=== PATIENT | male | born 2000 | race Caucasian/White ===

== ENCOUNTER 2022-06-20 14:05 | Emergency (ER) | payer OTHER ==
--- NOTE | 2022-06-20 15:26 | RAD REPORT ---
EXAM DESCRIPTION: RAD - Elbow Left 3 View - 06/20/2022 3:08 pm CLINICAL HISTORY: PAIN COMPARISON: No comparisons FINDINGS/IMPRESSION: No acute fracture. No malalignment. No significant focal degenerative changes.
--- NOTE | 2022-06-20 15:38 | ER ---
Nurse's Notes [facility] Name: Esdras Mariee Age: 22 yrs Sex: Male : 2000 Arrival Date: 06/20/2022 Time: 14:08 Bed 11 Private MD: Diagnosis: Pain in left elbow Presentation: 06/20 14:27 Chief complaint: Patient states: day before yesterday was lifting and my elbow locked jh5 up, and as i straighted it, the pain started. Coronavirus screen: Vaccine status: Patient reports being unvaccinated. Client denies travel out of the [place] in the last 14 days. Ebola Screen: Patient negative for fever greater than or equal to 101.5 degrees Fahrenheit, and additional compatible Ebola Virus Disease symptoms Patient denies exposure to infectious person. Patient denies travel to an Ebola-affected area in the 21 days before illness onset. Initial Sepsis Screen: Does the patient meet any 2 criteria? No. Patient's initial sepsis screen is negative. Does the patient have a suspected source of infection? No. Patient's initial sepsis screen is negative. Risk Assessment: Do you want to hurt yourself or someone else? Patient reports no desire to harm self or others. 14:27 Method Of Arrival: Ambulatory [facility] 14:27 Acuity: CECIL 4 jh5 Triage Assessment: 14:29 General: Appears in no apparent distress. uncomfortable, well groomed, well developed, [facility] Behavior is calm, cooperative, appropriate for age. Historical: - Allergies: 14:29 No Known Allergies; [facility] - Home Meds: 14:29 None [Active]; [facility] - PMHx: 14:29 None; [facility] - PSHx: 14:29 None; [facility] - Immunization history:: Adult Immunizations up to date. - Social history:: Smoking status: Patient reports the use of cigarette tobacco products, denies chronic smoking, but will smoke occasionally. Screenin:41 Abuse screen: Denies threats or abuse. Denies injuries from another. Nutritional ld1 screening: No deficits noted. Tuberculosis screening: No symptoms or risk factors identified. Fall Risk None identified. Assessment: 14:41 General: Appears in no apparent distress. comfortable, Behavior is calm, cooperative, ld1 appropriate for age. Pain: Complains of pain in right arm and left arm Pain does not radiate. Pain at worst was 6 out of 10 on a pain scale. Neuro: Level of Consciousness is awake, alert, obeys commands, Oriented to person, place, time, situation. Cardiovascular: Capillary refill < 3 seconds Patient's skin is warm and dry. Respiratory: Airway is patent Respiratory effort is even, unlabored. GI: Abdomen is flat, non-distended. : No signs and/or symptoms were reported regarding the genitourinary system. EENT: No signs and/or symptoms were reported regarding the EENT system. Derm: No signs and/or symptoms reported regarding the dermatologic system. Musculoskeletal: No signs and/or symptoms reported regarding the musculoskeletal system. Vital Signs: 14:27 BP 118 / 76; Pulse 84; Resp 18; Temp 98.3; Pulse Ox 100% ; Weight 95.25 kg; Height 6 5 ft. 1 in. (185.42 cm); Pain 8/10; 14:41 BP 116 / 79; Pulse 81; Resp 18; Pulse Ox 100% ; Pain 6/10; ld1 14:27 Body Mass Index 27.71 (95.25 kg, 185.42 cm) [facility] ED Course: 14:08 Patient arrived in ED. rg4 14:24 Jessica Ramesh PA is PHCP. en 14:24 Satnam Greenberg MD is Attending Physician. en 14:29 Triage completed. 5 14:29 Arm band placed on right wrist. [facility] 14:41 Jeanette Barajas, RN is Primary Nurse. ld1 14:41 Patient has correct armband on for positive identification. Placed in gown. Bed in low ld1 position. Call light in reach. Side rails up X2. Pulse ox on. NIBP on. Door closed. Noise minimized. 14:41 No provider procedures requiring assistance completed. Patient did not have IV access ld1 during this emergency room visit. 15:10 Elbow Left 3 View XRAY In Process Unspecified. EDMS 15:37 Valdo Whelan MD is Referral Physician. en Administered Medications: No medications were administered Medication: 14:41 VIS not applicable for this client. ld1 Outcome: 15:37 Discharge ordered by . en 15:55 Discharged to home ambulatory. ld1 15:55 Condition: stable 15:55 Discharge instructions given to patient, Instructed on discharge instructions, follow up and referral plans. Demonstrated understanding of instructions, follow-up care. 15:55 Patient left the ED. ld1 Signatures: Dispatcher [employer] Lori Levine rg4 Jeanette Barajas RN RN ld1 Silvana Stafford RN RN jh5 Jessica Ramesh PA PA en
--- NOTE | 2022-06-20 15:39 | EDPHYS ---
Physician Documentation [facility] Name: Esdras Mariee Age: 22 yrs Sex: Male : 2000 Arrival Date: 06/20/2022 Time: 14:08 Bed 11 Private MD: ED Physician Satnam Greenberg HPI: 06/20 14:55 This 22 yrs old Male presents to ER via Ambulatory with complaints of Elbow Pain. en 14:55 22-year-old tpupa-cxox-valesqac male presents to ED with left elbow pain by 2 days. en Patient reports sudden onset of sharp/burning elbow pain 2 days ago after lifting. He had pain extending his arm initially but now has full range of motion without swelling or deformity. No numbness or tingling. He did not feel a pop.. Historical: - Allergies: 14:29 No Known Allergies; [facility] - Home Meds: 14:29 None [Active]; 5 - PMHx: 14:29 None; [facility] - PSHx: 14:29 None; [facility] - Immunization history:: Adult Immunizations up to date. - Social history:: Smoking status: Patient reports the use of cigarette tobacco products, denies chronic smoking, but will smoke occasionally. ROS: 14:55 Constitutional: Negative for fever, chills, and weight loss. en 14:55 MS/extremity: Positive for Left elbow pain, Negative for deformity, swelling. 14:55 Neuro: Negative for numbness, tingling. 14:55 All other systems are negative. Exam: 14:55 Constitutional: This is a well developed, well nourished patient who is awake, alert, en and in no acute distress. 14:55 Constitutional: The patient appears in no acute distress, alert, awake. 14:55 Eyes: Conjunctiva: exudate, injected. 14:55 ENT: Posterior pharynx: Airway: patent. 14:55 Musculoskeletal/extremity: FROM left elbow without swelling or deformity. Mild TTP along medial tricep insertion without palpable defect. No TTP along ulnar tunnel. 2+ radial pulse. 14:55 Musculoskeletal/extremity: ulnar and medial collateral ligaments stable. 14:55 Skin: no rash present. 14:55 Neuro: normal m/u/r nerve motor and sensory function. Vital Signs: 14:27 BP 118 / 76; Pulse 84; Resp 18; Temp 98.3; Pulse Ox 100% ; Weight 95.25 kg; Height 6 5 ft. 1 in. (185.42 cm); Pain 8/10; 14:41 BP 116 / 79; Pulse 81; Resp 18; Pulse Ox 100% ; Pain 6/10; ld1 14:27 Body Mass Index 27.71 (95.25 kg, 185.42 cm) [facility] MDM: 14:24 Patient medically screened. en 14:55 Differential diagnosis: tricep strain vs tear, intra-articular FB, arthritis. Data en reviewed: vital signs, nurses notes, radiologic studies, plain films. 15:36 ED course: Reviewed imaging with patient. Discussed possible triceps strain versus en small tear. Will DC home with current sling that he already has. Motrin for pain and Ortho referral as needed for additional imaging.. 06/20 14:47 Order name: Elbow Left 3 View XRAY; Complete Time: 15:36 en Administered Medications: No medications were administered Disposition: 17:16 Co-signature as Attending Physician, Satnam Greenberg MD. rn Disposition Summary: 06/20/22 15:37 Discharge Ordered Location: Home en Problem: new en Symptoms: are unchanged en Condition: Stable en Diagnosis - Pain in left elbow en Followup: en - With: Valdo Whelan MD - When: 1 week - Reason: Re-evaluation by your physician Discharge Instructions: - Discharge Summary Sheet en - Musculoskeletal Pain en Forms: - Medication Reconciliation Form en - Thank You Letter en - Work release form [email or web address] - Antibiotic Education en - Prescription Opioid Use en Prescriptions: - Ibuprofen 600 mg Oral Tablet - take 1 tablet by ORAL route every 6 hours As needed take with food; 30 tablet; en Refills: 0, Product Selection Permitted Signatures: Dispatcher [employer] EDSatnam Hairston MD MD rn Rees, Jessica, RN RN 5 Jessica Ramesh PA PA en
[2022-06-20 15:59] VITALS: TEMP 98.3; O2SAT 100
[2022-06-20 16:01] VITALS: BP 116/79
== END 2022-06-20 15:55 | disposition home or self-care (01) ==
LOC: ER 14:05
DX: M25.522 Pain in left elbow (principal); F17.210 Nicotine dependence, cigarettes, uncomplicated
CPT/HCPCS: 99283

== ENCOUNTER 2023-01-27 15:17 | Emergency (ER) | payer OTHER ==
[2023-01-27 15:48] LABS: Absolute Lymphocytes (CBC) 2.4 K/uL (0.7-4.9); Hematocrit 48.8 % (39.6-49.0); Lymphocytes % 23.1 % (15.3-44.8); MPV 8.4 fL (7.6-11.3); RBC Red Blood Cell Count 5.67 M/uL (4.33-5.43)
[2023-01-27] MEDS ORDERED: ONDANSETRON 4 MG/2 ML VIAL ONE (15:53)
[2023-01-27 16:05] LABS: Albumin 4.9 g/dL (3.4-5.0); Bilirubin Total 2.5 mg/dL (0.2-1.0); Potassium 3.6 mEq/L (3.5-5.1); Protein, Total 8.8 g/dL (6.4-8.2)
--- NOTE | 2023-01-27 17:40 | ER ---
Nurse's Notes [facility] Name: Esdras Mariee Age: 22 yrs Sex: Male : 2000 Arrival Date: 01/27/2023 Time: 15:17 Bed 13 Private MD: Diagnosis: Nausea with vomiting, unspecified Presentation: 01/27 15:22 Chief complaint: Patient states: abd cramping, vomiting, slight diarrhea that began aa5 yesterday. 15:22 Coronavirus screen: vomiting. Ebola Screen: Patient denies travel to an Ebola-affected [facility] area in the 21 days before illness onset. Initial Sepsis Screen: Does the patient meet any 2 criteria? No. Patient's initial sepsis screen is negative. Does the patient have a suspected source of infection? No. Patient's initial sepsis screen is negative. Risk Assessment: Do you want to hurt yourself or someone else? Patient reports no desire to harm self or others. Onset of symptoms was January 2023. 15:22 Method Of Arrival: Ambulatory aa5 15:22 Acuity: CECIL 3 aa5 Triage Assessment: 15:30 General: Appears in no apparent distress. Behavior is calm, cooperative, appropriate bp for age. Pain: Complains of pain in abdomen. EENT: No deficits noted. Neuro: No deficits noted. Cardiovascular: No deficits noted. Respiratory: No deficits noted. GI: Reports lower abdominal pain, nausea. : No signs and/or symptoms were reported regarding the genitourinary system. Derm: No deficits noted. Musculoskeletal: No deficits noted. Historical: - Allergies: 15:30 No Known Allergies; aa5 - Home Meds: 15:30 None [Active]; aa5 - PMHx: 15:30 None; aa5 - PSHx: 15:30 collar bone; aa5 - Immunization history:: Adult Immunizations unknown. - Social history:: Smoking status: Patient reports the use of cigarette tobacco products, smokes one-half pack cigarettes per day. Screenin:30 [facility] ED Fall Risk Assessment (Adult) History of falling in the last 3 months, bp including since admission No falls in past 3 months (0 pts). Abuse screen: Denies threats or abuse. Denies injuries from another. Nutritional screening: No deficits noted. Tuberculosis screening: No symptoms or risk factors identified. Assessment: 15:30 General: SEE TRIAGE NOTE. bp 16:24 Reassessment: Patient appears in no apparent distress at this time. Patient is alert, bp oriented x 3, equal unlabored respirations, skin warm/dry/pink. Vital Signs: 15:22 BP 148 / 99; Pulse 64; Resp 16 S; Temp 98.4(O); Pulse Ox 97% on R/A; Weight 87.09 kg aa5 (R); Height 6 ft. 1 in. (R); 16:24 BP 146 / 73; Pulse 58; Resp 16; Pulse Ox 97% ; bp 18:01 BP 136 / 71; Pulse 62; Resp 16; Pulse Ox 99% ; bp 15:22 Body Mass Index 25.33 (87.09 kg, 185.42 cm) aa5 ED Course: 15:21 Patient arrived in ED. am2 15:21 Melissa Schultz FNP-C [facility] kb 15:21 Luis Blancas MD is Attending Physician. kb 15:22 Arm band placed on. aa5 15:24 Kenny Cochran, LARISA is Primary Nurse. bp 15:30 Patient has correct armband on for positive identification. Bed in low position. Call bp light in reach. Side rails up X2. 15:31 Triage completed. aa5 15:45 Inserted saline lock: 20 gauge in right antecubital area, using aseptic technique. bp Blood collected. 18:02 No provider procedures requiring assistance completed. IV discontinued, intact, bp bleeding controlled, No redness/swelling at site. Pressure dressing applied. Administered Medications: 15:45 Drug: Ondansetron IVP 4 mg Route: IVP; Site: right antecubital; bp 17:09 Follow up: Response: No adverse reaction bp Medication: 15:30 VIS not applicable for this client. bp Outcome: 17:39 Discharge ordered by . kb 18:02 Discharged to home ambulatory. bp 18:02 Condition: stable 18:02 Discharge instructions given to patient, Instructed on discharge instructions, follow up and referral plans. medication usage, Demonstrated understanding of instructions, follow-up care, medications, Prescriptions given X 1. 18:03 Patient left the ED. bp Signatures: Melissa Schultz FNP-C FNP-Ckb Calderon, Audri RN RN aa5 Luciana Garnica am2 Kenny Cochran, RN RN bp
--- NOTE | 2023-01-27 17:40 | EDPHYS ---
Physician Documentation [facility] Name: Esdras Mariee Age: 22 yrs Sex: Male : 2000 Arrival Date: 01/27/2023 Time: 15:17 Bed 13 Private MD: ED Physician Luis Blancas HPI: 01/27 20:39 This 22 yrs old Male presents to ER via Ambulatory with complaints of Abdominal Pain, kb Nausea/Vomiting. 20:39 The patient presents with abdominal pain that is diffuse. Onset: The symptoms/episode kb began/occurred today. The symptoms do not radiate. Associated signs and symptoms: Pertinent positives: nausea, vomiting, and diarrhea, Pertinent negatives: fever. The symptoms are described as constant. Modifying factors: The symptoms are alleviated by nothing, the symptoms are aggravated by nothing. Severity of pain: At its worst the pain was mild in the emergency department the pain is unchanged. The patient has not experienced similar symptoms in the past. The patient has not recently seen a physician. Pt reports n/v, slight diarrhea and upper abd soreness that started today. states he came in because his boss made him.. Historical: - Allergies: 15:30 No Known Allergies; aa5 - Home Meds: 15:30 None [Active]; aa5 - PMHx: 15:30 None; aa5 - PSHx: 15:30 collar bone; aa5 - Immunization history:: Adult Immunizations unknown. - Social history:: Smoking status: Patient reports the use of cigarette tobacco products, smokes one-half pack cigarettes per day. ROS: 20:37 Constitutional: Negative for fever, chills, and weight loss. kb 20:37 Abdomen/GI: Positive for abdominal pain, nausea, vomiting, and diarrhea. 20:37 All other systems are negative. Exam: 20:37 Constitutional: This is a well developed, well nourished patient who is awake, alert, kb and in no acute distress. ENT: Moist Mucous membranes Cardiovascular: Regular rate and rhythm with a normal S1 and S2. No gallops, murmurs, or rubs. No pulse deficits. Respiratory: Respirations even and unlabored. No increased work of breathing. Talking in full sentences Abdomen/GI: Soft, non-tender. No distention Skin: Warm, dry with normal turgor. Normal color. MS/ Extremity: Pulses equal, no cyanosis. Neurovascular intact. Full, normal range of motion. Neuro: Awake and alert, GCS 15, oriented to person, place, time, and situation. Moves all extremities. Normal gait. Vital Signs: 15:22 BP 148 / 99; Pulse 64; Resp 16 S; Temp 98.4(O); Pulse Ox 97% on R/A; Weight 87.09 kg aa5 (R); Height 6 ft. 1 in. (R); 16:24 BP 146 / 73; Pulse 58; Resp 16; Pulse Ox 97% ; bp 18:01 BP 136 / 71; Pulse 62; Resp 16; Pulse Ox 99% ; bp 15:22 Body Mass Index 25.33 (87.09 kg, 185.42 cm) aa5 MDM: 15:21 Patient medically screened. kb 20:38 Differential diagnosis: gastritis, non-specific abd pain, viral gastroenteritis. Data kb reviewed: vital signs, nurses notes. Test considered but Not performed: CT: CT abd considered, but pt has no abd tenderness, nontoxic in appearance, afebrile, tolerating po intake. Counseling: I had a detailed discussion with the patient and/or guardian regarding: the historical points, exam findings, and any diagnostic results supporting the discharge/admit diagnosis, lab results, the need for outpatient follow up, a family practitioner, a radio station engineer, to return to the emergency department if symptoms worsen or persist or if there are any questions or concerns that arise at home. 01/27 15:30 Order name: CBC with Diff; Complete Time: 15:51 kb 01/27 15:30 Order name: CMP; Complete Time: 16:06 kb 01/27 15:30 Order name: Lipase; Complete Time: 16:06 kb 01/27 15:30 Order name: IV Saline Lock; Complete Time: 15:54 kb 01/27 15:30 Order name: Labs collected and sent; Complete Time: 15:54 kb 01/27 16:40 Order name: PO challenge; Complete Time: 17:09 kb Administered Medications: 15:45 Drug: Ondansetron IVP 4 mg Route: IVP; Site: right antecubital; bp 17:09 Follow up: Response: No adverse reaction bp Disposition Summary: 01/27/23 17:39 Discharge Ordered Location: Home kb Condition: Stable kb Diagnosis - Nausea with vomiting, unspecified kb Followup: kb - With: Emergency Department - When: As needed - Reason: Worsening of condition Followup: kb - With: Private Physician - When: 2 - 3 days - Reason: Recheck today's complaints, Continuance of care, Re-evaluation by your physician Discharge Instructions: - Discharge Summary Sheet kb - Nausea and Vomiting, Adult, [id number] kb Forms: - Work release form kb - Medication Reconciliation Form kb - Thank You Letter kb - Antibiotic Education kb - Prescription Opioid Use kb Prescriptions: - ondansetron 4 mg Oral Tablet,disintegrating - take 1 tablet by ORAL route every 6 hours As needed; 10 tablet; Refills: 0, kb Product Selection Permitted Signatures: Dispatcher [employer] EDMS Melissa Schultz, GEOTHERMAL SYSTEM INSTALLER-C GEOTHERMAL SYSTEM INSTALLER-Kenyatta Johnson, RN RN aa5 Kenny Cochran RN RN bp
[2023-01-27 18:27] VITALS: TEMP 98.4
[2023-01-27 18:30] VITALS: BP 136/71; O2SAT 99
== END 2023-01-27 18:03 | disposition home or self-care (01) ==
LOC: ER 15:17
DX: R11.2 Nausea with vomiting, unspecified (principal); R10.10 Upper abdominal pain, unspecified; F17.210 Nicotine dependence, cigarettes, uncomplicated
CPT/HCPCS: 85025; 36415; 83690; 80053; 96374; 99284; J2405

== ENCOUNTER 2023-02-26 18:52 | Emergency (ER) | payer OTHER ==
--- NOTE | 2023-02-26 20:12 | EDPHYS ---
Physician Documentation [facility] Name: Esdras Mariee Age: 22 yrs Sex: Male : 2000 Arrival Date: 02/26/2023 Time: 18:52 Bed IW1 Private MD: ED Physician Satnam Greenberg HPI: 02/26 19:15 This 22 yrs old Male presents to ER via Ambulatory with complaints of COVID SYMPTOMS. rn 19:15 Pt reports sinus pressure and drainage, headache, subjective fever, chills, and nausea rn for 2 days, took home COVID test, was positive, but his work wont accept a home test. Here for confirmation. No sob or chest pain.. Onset: The symptoms/episode began/occurred 2 day(s) ago. Severity of symptoms: At their worst the symptoms were mild in the emergency department the symptoms are unchanged. The patient has not experienced similar symptoms in the past. The patient has not recently seen a physician. Historical: - Allergies: 19:14 No Known Allergies; ph - PSHx: 19:14 collar bone; ph - Immunization history:: Adult Immunizations unknown. - Social history:: Smoking status: Reported history of juuling and/or vaping. - Family history:: not pertinent. - Hospitalizations: : No recent hospitalization is reported. ROS: 19:15 Constitutional: + fever and chills Eyes: Negative for injury, pain, redness, and staffing rn, Cardiovascular: Negative for chest pain, palpitations, and edema, Respiratory: + cough, negative for sob Abdomen/GI: Negative for abdominal pain, vomiting, diarrhea, and constipation, MS/Extremity: Negative for injury and deformity, Skin: Negative for injury, rash, and discoloration, Neuro: + headache Exam: 19:15 Constitutional: This is a well developed, well nourished patient who is awake, alert, rn and in no acute distress. Respiratory: No increased work of breathing, no retractions or nasal flaring. Neuro: Awake and alert, GCS 15 Vital Signs: 19:11 BP 131 / 82; Pulse 113; Resp 18; Temp 98.4; Pulse Ox 100% ; Weight 86.64 kg; Height 6 ph ft. 1 in. ; 19:11 Body Mass Index 25.20 (86.64 kg, 185.42 cm) ph MDM: 18:58 Patient medically screened. rn 20:10 Differential Diagnosis COVID. Data reviewed: vital signs, nurses notes, lab test rn result(s), and as a result, I will discharge patient. Counseling: I had a detailed discussion with the patient and/or guardian regarding: the historical points, exam findings, and any diagnostic results supporting the discharge/admit diagnosis, lab results, the need for outpatient follow up, to return to the emergency department if symptoms worsen or persist or if there are any questions or concerns that arise at home. Special discussion: I discussed with the patient/guardian in detail that at this point there is no indication for admission to the hospital. It is understood, however, that if the symptoms persist or worsen the patient needs to return immediately for re-evaluation. 02/26 19:07 Order name: SARS-COV-2 RT PCR; Complete Time: 20:02 ph Administered Medications: No medications were administered Disposition Summary: 02/26/23 20:12 Discharge Ordered Location: Home rn Problem: new rn Symptoms: have improved rn Condition: Stable rn Diagnosis - SARS-associated coronavirus as the cause of diseases classified elsewhere rn Followup: rn - With: Private Physician - When: As needed - Reason: Recheck today's complaints, Re-evaluation by your physician Discharge Instructions: - Discharge Summary Sheet rn - COVID-19 rn Forms: - Medication Reconciliation Form rn - Thank You Letter rn - Antibiotic privacy attorney - Prescription Opioid Use rn - Patient Portal Instructions rn - Work release form [email or web address] Signatures: Dispatcher [employer] Satnam Hawkins MD MD rn Hall, Patricia, RN RN
--- NOTE | 2023-02-26 20:12 | ER ---
Nurse's Notes [facility] Name: Esdras Mariee Age: 22 yrs Sex: Male : 2000 Arrival Date: 02/26/2023 Time: 18:52 Bed IW1 Private MD: Diagnosis: SARS-associated coronavirus as the cause of diseases classified elsewhere Presentation: 02/26 19:11 Chief complaint: Patient states: Nasal congestion, fatigue, body aches, headache. ph Coronavirus screen: Vaccine status: Patient reports receiving the 2nd dose of the covid vaccine. Ebola Screen: No symptoms or risks identified at this time. Initial Sepsis Screen: Does the patient meet any 2 criteria? No. Patient's initial sepsis screen is negative. Does the patient have a suspected source of infection? No. Patient's initial sepsis screen is negative. Risk Assessment: Do you want to hurt yourself or someone else? Patient reports no desire to harm self or others. Onset of symptoms was February 26, 2023. 19:11 Method Of Arrival: Ambulatory 19:11 Acuity: CECIL 4 ph Triage Assessment: 19:14 General: Appears in no apparent distress. comfortable, well groomed, Behavior is calm, ph cooperative, appropriate for age, Reports chills for fever for. Pain: Complains of pain in body aches. EENT: Reports nasal congestion. Neuro: Level of Consciousness is awake, alert, obeys commands, Oriented to person, place, time, situation, Reports headache. Respiratory: Airway is patent Respiratory effort is even, unlabored, Denies shortness of breath. GI: Reports nausea. Derm: Skin is pink, warm \T\ dry. Historical: - Allergies: 19:14 No Known Allergies; ph - PSHx: 19:14 collar bone; ph - Immunization history:: Adult Immunizations unknown. - Social history:: Smoking status: Reported history of juuling and/or vaping. - Family history:: not pertinent. - Hospitalizations: : No recent hospitalization is reported. Screenin:16 [facility] ED Fall Risk Assessment (Adult) History of falling in the last 3 months, ph including since admission No falls in past 3 months (0 pts) Confusion or Disorientation No (0 pts) Intoxicated or Sedated No (0 pts) Impaired Gait No (0 pts) Mobility Assist Device Used No (0 pt) Altered Elimination No (0 pt) Score/Fall Risk Level 0 - 2 = Low Risk Oriented to surroundings, Maintained a safe environment. Abuse screen: Denies threats or abuse. Denies injuries from another. Nutritional screening: No deficits noted. Tuberculosis screening: No symptoms or risk factors identified. Assessment: 19:16 General: SEE TRIAGE ASSESSMENT. ph Vital Signs: 19:11 BP 131 / 82; Pulse 113; Resp 18; Temp 98.4; Pulse Ox 100% ; Weight 86.64 kg; Height 6 ph ft. 1 in. ; 19:11 Body Mass Index 25.20 (86.64 kg, 185.42 cm) ph ED Course: 18:56 Patient arrived in ED. kj1 18:57 Satnam Greenberg MD is Attending Physician. rn 19:13 Triage completed. ph 19:15 Arm band placed on Patient placed in waiting room, Patient's private physician ph notified. Labs ordered per protocol. 19:16 Patient has correct armband on for positive identification. Call light in reach. ph 19:16 No provider procedures requiring assistance completed. Patient did not have IV access ph during this emergency room visit. 19:17 SARS-COV-2 RT PCR Sent. ph 19:54 Zoie Gagnon, RN is Primary Nurse. kd3 20:22 Provided Education on: . kd3 Administered Medications: No medications were administered Medication: 19:16 VIS not applicable for this client. ph Outcome: 20:12 Discharge ordered by . rn 20:21 Discharged to home kd3 20:21 Condition: stable 20:22 Discharge instructions given to patient, Instructed on discharge instructions, follow kd3 up and referral plans. Demonstrated understanding of instructions, follow-up care. 20:22 Patient left the ED. kd3 Signatures: Satnam Greenberg MD MD rn Hall, Patricia, RN RN Kimmie Schultz kj1 Zoie Gagnon RN RN kd3
[2023-02-26 20:52] VITALS: BP 131/82; TEMP 98.4; O2SAT 100
== END 2023-02-26 20:22 | disposition home or self-care (01) ==
LOC: ER 18:52
DX: U07.1 COVID-19 (principal)
CPT/HCPCS: 87635

== ENCOUNTER 2023-05-30 16:33 | Emergency (ER) | payer OTHER ==
--- NOTE | 2023-05-30 16:56 | ER ---
Nurse's Notes [facility] Name: Esdras Mariee Age: 23 yrs Sex: Male : 2000 Arrival Date: 05/30/2023 Time: 16:33 Bed 11 Private MD: Diagnosis: Nausea with vomiting, unspecified Presentation: 05/30 16:41 Chief complaint: Patient states: "Yesterday, I started having stomach cramps. N/V/D. I mb9 called into work today and was told to get a doctors note". Coronavirus screen: Vaccine status: Patient reports being unvaccinated. Ebola Screen: No symptoms or risks identified at this time. Initial Sepsis Screen: Does the patient meet any 2 criteria? No. Patient's initial sepsis screen is negative. Does the patient have a suspected source of infection? No. Patient's initial sepsis screen is negative. Risk Assessment: Do you want to hurt yourself or someone else? Patient reports no desire to harm self or others. Onset of symptoms was May 30, 2023. 16:41 Method Of Arrival: Ambulatory 9 16:41 Acuity: CECIL 4 mb9 Triage Assessment: 16:43 General: Appears in no apparent distress. Behavior is calm, cooperative. Pain: mb9 Complains of pain in abdomen Pain does not radiate. Pain currently is 1 out of 10 on a pain scale. Pain began 1 day ago. Is continuous. EENT: No signs and/or symptoms were reported regarding the EENT system. Neuro: Leavitt Agitation-Sedation Scale (RASS): 0 - Alert and Calm Level of Consciousness is awake, alert, obeys commands, Oriented to person, place, time, situation, Appropriate for age. Cardiovascular: Patient's skin is warm and dry. Respiratory: Airway is patent Respiratory effort is even, unlabored, Respiratory pattern is regular, symmetrical. GI: Abdomen is round non-distended, Bowel sounds present X 4 quads. Abd is soft and non tender X 4 quads. GI: Reports diarrhea, nausea, vomiting. : No signs and/or symptoms were reported regarding the genitourinary system. Derm: Skin is pink, warm \\T\\ dry. Musculoskeletal: Range of motion: intact in all extremities. Historical: - Allergies: 16:43 No Known Allergies; mb9 - Home Meds: 16:43 None [Active]; mb9 - PMHx: 16:43 None; mb9 - PSHx: 16:43 collar bone; mb9 - Immunization history:: Adult Immunizations up to date. - Social history:: Smoking status: Patient reports use of chewing tobacco. Screenin:00 [facility] ED Fall Risk Assessment (Adult) Score/Fall Risk Level 0 - 2 = Low Risk hb Oriented to surroundings, Maintained a safe environment. Abuse screen: Denies threats or abuse. Denies injuries from another. Nutritional screening: No deficits noted. Tuberculosis screening: No symptoms or risk factors identified. Assessment: 17:00 General: Appears in no apparent distress. Behavior is calm, cooperative. Pain: Denies hb pain. Neuro: Level of Consciousness is awake, alert, obeys commands, Oriented to person, place, time, situation. Cardiovascular: Patient's skin is warm and dry. Respiratory: Respiratory effort is even, unlabored, Respiratory pattern is regular, symmetrical. GI: Reports nausea, vomiting. : No signs and/or symptoms were reported regarding the genitourinary system. EENT: No signs and/or symptoms were reported regarding the EENT system. Derm: Skin is pink, warm \\T\\ dry. Musculoskeletal: No signs and/or symptoms reported regarding the musculoskeletal system. Vital Signs: 16:41 BP 135 / 80; Pulse 86; Resp 16; Temp 97.7(O); Pulse Ox 100% ; Weight 87.09 kg; Height 6 mb9 ft. 1 in. ; Pain 1/10; 16:41 Body Mass Index 25.33 (87.09 kg, 185.42 cm) mb9 16:41 Pain Scale: Adult mb9 ED Course: 16:38 Patient arrived in ED. ts1 16:43 Triage completed. mb9 16:43 Arm band placed on. mb9 16:46 [facility]oudh[facility] jh7 16:46 Malgorzata Haile MD is Attending Physician. [facility] er 17:00 Patient has correct armband on for positive identification. Provided Education on: hb meds, follow up. 17:00 No provider procedures requiring assistance completed. Patient did not have IV access hb during this emergency room visit. Administered Medications: No medications were administered Medication: 17:03 VIS not applicable for this client. hb Outcome: 16:56 Discharge ordered by MD. weber 17:04 Discharged to home ambulatory, 17:04 Condition: stable 17:04 Discharge instructions given to patient, Instructed on discharge instructions, follow up and referral plans. medication usage, Demonstrated understanding of instructions, follow-up care, medications, 17:04 Patient left the ED. Signatures: Mary Jo Medina, RN RN Susanne Choudhury, HAND PRESSER HAND PRESSER [email or web address] Odalys Pedro RN RN [email or web address] Joleen Almaraz PAS PAS ts1 Corrections: (The following items were deleted from the chart) 16:44 16:41 Chief complaint: Patient states: "Yesterday, I started having stomach cramps. mb9 N/V/D. I can't keep food or liquids down. I called into work today and was told to get a doctors note" mb9
[2023-05-30 17:10] VITALS: BP 135/80; TEMP 97.7; O2SAT 100
--- NOTE | 2023-05-31 17:04 | EDPHYS ---
Physician Documentation [facility] Name: Esdras Mariee Age: 23 yrs Sex: Male : 2000 Arrival Date: 05/30/2023 Time: 16:33 Bed 11 Private MD: ED Physician Malgorzata Haile HPI: 05/30 16:43 This 23 yrs old Male presents to ER via Ambulatory with complaints of Abdominal Pain, jh7 Nausea/Vomiting. 16:43 Patient reports nausea and vomiting occurring yesterday but resolving today. States jh7 that he is here for work note. Reports mild nausea today but states that he has Zofran at home and it made him feel better.. Historical: - Allergies: 16:43 No Known Allergies; mb9 - Home Meds: 16:43 None [Active]; mb9 - PMHx: 16:43 None; mb9 - PSHx: 16:43 collar bone; mb9 - Immunization history:: Adult Immunizations up to date. - Social history:: Smoking status: Patient reports use of chewing tobacco. ROS: 16:43 Constitutional: Negative for fever, chills, and weight loss, jh7 16:43 Eyes: Negative for injury, pain, redness, and discharge, Neck: Negative for injury, pain, and swelling, Cardiovascular: Negative for chest pain, palpitations, and edema, Respiratory: Negative for shortness of breath, cough, wheezing, and pleuritic chest pain, 16:43 Back: Negative for injury and pain, MS/Extremity: Negative for injury and deformity, Skin: Negative for injury, rash, and discoloration, Neuro: Negative for headache, weakness, numbness, tingling, and seizure, 16:43 Abdomen/GI: Positive for nausea, Negative for abdominal pain, vomiting, diarrhea, 16:43 All other systems are negative, Exam: 16:43 Constitutional: This is a well developed, well nourished patient who is awake, alert, jh7 and in no acute distress. Head/Face: Normocephalic, atraumatic. Cardiovascular: Regular rate and rhythm with a normal S1 and S2. No gallops, murmurs, or rubs. Normal PMI, no JVD. No pulse deficits. Respiratory: Lungs have equal breath sounds bilaterally, clear to auscultation and percussion. No rales, rhonchi or wheezes noted. No increased work of breathing, no retractions or nasal flaring. Abdomen/GI: Soft, non-tender, with normal bowel sounds. No distension or tympany. No guarding or rebound. No evidence of tenderness throughout. Skin: Warm, dry with normal turgor. Normal color with no rashes, no lesions, and no evidence of cellulitis. Neuro: Awake and alert, GCS 15, oriented to person, place, time, and situation. Normal gait. Vital Signs: 16:41 BP 135 / 80; Pulse 86; Resp 16; Temp 97.7(O); Pulse Ox 100% ; Weight 87.09 kg; Height 6 mb9 ft. 1 in. ; Pain 08/20; 16:41 Body Mass Index 25.33 (87.09 kg, 185.42 cm) mb9 16:41 Pain Scale: Adult mb9 MDM: 16:43 Differential diagnosis: non-specific abd pain, Viral illness, gastroenteritis. Data [facility] reviewed: vital signs, nurses notes. Counseling: I had a detailed discussion with the patient and/or guardian regarding the historical points, exam findings, and any diagnostic results supporting the discharge/admit diagnosis, to return to the emergency department if symptoms worsen or persist or if there are any questions or concerns that arise at home. ED course: Patient declined any treatment and stated that he would just like a work note.. 16:46 Patient medically screened. [facility] Administered Medications: No medications were administered Disposition Summary: 05/30/23 16:56 Discharge Ordered Notes: Location: Home [facility] Symptoms: have improved [facility] Condition: Stable [facility] Diagnosis - Nausea with vomiting, unspecified [facility] Followup: [facility] - With: Private Physician - When: 2 - 3 days - Reason: Recheck today's complaints Discharge Instructions: - Discharge Summary Sheet [facility] - Nausea and Vomiting, Adult [facility] - Form - Return To Work [facility] Forms: - Work release form hb - Medication Reconciliation Form [facility] - Thank You Letter [facility] - Patient Portal Instructions [facility] - Leadership Thank You Letter [facility] Signatures: Susanne Choudhury, WATER CONTROL SUPERVISOR WATER CONTROL SUPERVISOR [facility] Odalys Pedro RN RN mb9
== END 2023-05-30 17:04 | disposition home or self-care (01) ==
LOC: ER 16:33
DX: R11.2 Nausea with vomiting, unspecified (principal)
CPT/HCPCS: 99282